=== PATIENT | female | born 1975 | race Two or more races ===

== ENCOUNTER 2020-08-09 13:50 | Outpatient (CLI) | payer OTHER | END 2020-08-09 15:05 | disposition home or self-care (01) | LOC: RAD 13:50 | PROVIDERS: ATTEND Surgery | DX: N60.11 Diffuse cystic mastopathy of right breast (principal); N60.12 Diffuse cystic mastopathy of left breast; R92.0 Mammographic microcalcification found on diagnostic imaging of breast ==

== ENCOUNTER 2022-04-13 14:03 | Emergency (ER) | payer OTHER ==
[~2022-04-13] VITALS: Ht 165.1 cm; Wt 89.8 kg
[2022-04-13] MEDS ORDERED: PROAIR RESPICL90 MCG IH (14:42)
[2022-04-13] MEDS ORDERED: ADVIL200 M1 PO (14:43)
== END 2022-04-13 19:40 | disposition home or self-care (01) ==
LOC: ER 14:03
DX: J45.901 Unspecified asthma with (acute) exacerbation (principal); J32.9 Chronic sinusitis, unspecified; I10 Essential (primary) hypertension; Z20.822 Contact with and (suspected) exposure to COVID-19

== ENCOUNTER 2022-12-07 09:38 | Outpatient (CLI) | payer OTHER ==
[~2022-12-07 09:38] MED LIST: ADVIL200 M1 PO; PROAIR RESPICL90 MCG IH
== END 2022-12-07 09:54 | disposition home or self-care (01) ==
LOC: RAD 09:38
DX: R51.9 Headache, unspecified (principal); M54.2 Cervicalgia; M54.6 Pain in thoracic spine; M54.59 Other low back pain; R10.9 Unspecified abdominal pain

== ENCOUNTER 2024-04-17 10:32 | Outpatient (CLI) | payer OTHER | END 2024-04-17 10:59 | disposition home or self-care (01) | LOC: RAD 10:32 | DX: M54.2 Cervicalgia (principal); M54.50 Low back pain, unspecified; M54.6 Pain in thoracic spine ==

== ENCOUNTER 2024-05-10 09:47 | Outpatient (CLI) | payer OTHER | END 2024-05-10 09:48 | disposition home or self-care (01) | LOC: NUCLEAR 09:47 | DX: K81.1 Chronic cholecystitis (principal) ==